=== PATIENT | female | born 1980 | race Caucasian/White ===

== ENCOUNTER 2021-06-03 12:51 | Emergency (ER) | payer MEDICAID, SELFPAY ==
[2021-06-03 13:01] VITALS: BP 184/98; PULSE 110; RESP 18; TEMP 36.6; O2SAT 98; BMI 35.0
--- NOTE | 2021-06-03 13:07 | ED_ITS ---
HPI - Abdominal Pain General: Chief Complaint: Abdominal Pain Stated Complaint: Stomach swelled up, hurting Time Seen by Provider: 06/03/21 13:07 History of Present Illness: Ms Jones is a 40-year-old lady with significant past medical history of alcohol and substance abuse who presents emergency department due to abdominal discomfort. She reports history of drinking about 1 gallon of hard alcohol per day for last 2 years as well as abusing multiple substances including fentanyl. She recently got insurance and has been with programs for substance abuse cessation, she is transition to methadone and last drink was 4 to 5 days ago. She started noticing, about 1 week ago, abdominal swelling and discomfort. She has noticed a fullness sensation which she has never had before. She reports symptoms are worse when trying to sit up and she has a lot of abdominal pressure associated with this. Intensity when present is moderate to severe. Course has been worsening. She feels generally unwell and has chills and fevers at times though reports she is unsure if this is related to the change from the substances she was using to methadone or something else. No other specific changes in health, exacerbating, or relieving factors identified. Pertinent past history: other Onset (ago): week(s) Pain Consistency: constant Location: Diffuse Severity: moderate Quality: fullness and other Exacerbating factors: movement Relieving factors: nothing Context: other Review of Systems General: Reports: 10 or more systems reviewed and unremarkable except in HPI and below PFSH ED PFSH: Medical History HTN (hypertension) Surgical History History of section History of tubal ligation Social History Smoking and tobacco status: current every day smoker Alcohol intake: current Physical Exam Const: COMMON NORMALS: alert GENERAL APPEARANCE: cooperative and well developed HENMT: COMMON NORMALS: normocephalic and atraumatic HEAD & SCALP: normocephalic and atraumatic Eye: COMMON NORMALS: conjunctivae normal CONJUNCTIVA: Yes conjunctivae normal SCLERA: sclerae normal Neck/C-Spine: COMMON NORMALS: supple GENERAL: Yes trachea midline Resp: COMMON NORMALS: normal respiratory effort EFFORT & INSPECTION: Yes able to speak in complete sentences AUSCULTATION: diminished lung sounds bilateral in the lower lung nj Cardio: COMMON NORMALS: regular rhythm RATE: tachycardic RHYTHM: regular rhythm GI: COMMON NORMALS: Soft to palpation PALPATION: Yes Soft to palpation, Yes Tenderness to palpation present (GI), No Guarding due to palpation present (GI) and No Rigid due to palpation PERCUSSION: normal to percussion Extremity: GENERAL: Yes normal exam except as noted and No edema Neuro: COMMON NORMALS: moves all extremities SENSORIUM/ORIENTATION: Yes alert and No Orientation impaired Psych: COMMON NORMALS: mental status grossly normal and Normal thought process present THOUGHT PROCESS: Normal thought process present Course ED course: - Patient was seen and evaluated by me at bedside - Patient placed on cardiac monitors, IV access obtained - Initial evaluation notable for exam as above -IV fluids given. Anxiolysis given. - Labs notable for no leukocytosis, metabolic panel with evidence of dehydration. There is transaminitis, lipase normal. Urinalysis not concerning for urinary tract infection. Given history hepatitis panel ordered however pending at time of discharge. - Imaging notable for no acute findings identified to explain the patient's abdominal discomfort. She does have cholelithiasis diffuse hepatic steatosis as well as asymmetric kidneys and a fat-containing ventral hernia. - Upon serial reexamination after treatment the patient was improved - Based on patient history, evaluation, labs, and imaging as interpreted the most likely cause of the patient's condition is likely multifactorial including transition to methadone, fatty liver, and other causes - The patient does endorse a intermittent history of what sounds like symptomatic cholelithiasis and therefore will be referred for outpatient surgical consultation. Additionally, given the patient's transaminitis I will refer her to Dr. Rodriguez. - The results of ED evaluation were discussed with the patient including prescriptions and/or symptomatic cares (if applicable) including appropriate and responsible use, followup plan, and return precautions. The patient verbalized understanding and felt safe for discharge. - Patient discharged in satisfactory condition. Note: Click bubbles or prepopulated nj in note writing are used for assistance with data collection and billing and are inherently more limited than narrative and other text portions of this note. Please use narrative for additional clinical history and defer to narrative/free test for any case of contradictory information. If information appears in only free text or click bubble it should be considered present or absent as reported. Please contact note telegraphic typewriter repairer for clarifications of clinical information or contradictory information. MDM is a brief summary, contradictory or erroneous seeming information should be clarified and full note should be reviewed. Vital Signs: Vital signs: Vital Signs Temperature 97.9 F 06/03/21 13:01 Pulse Rate 101 H 06/03/21 16:39 Respiratory Rate 17 06/03/21 16:39 Blood Pressure 166/104 06/03/21 16:39 Pulse Oximetry 98 06/03/21 16:39 MDM - Abdominal Pain Medical Decision Making 40-year-old lady with complex past medical history presents emergency department due to abdominal discomfort and generalized symptoms. Laboratory studies notable for mild transaminitis. CT imaging without acute pathology requiring intervention. Patient improved after symptomatic treatment and satisfactory for outpatient follow-up. Medical Records I reviewed the patient's medical records. Lab Data I reviewed the patient's lab results. : 06/03/21 14:09 06/03/21 14:09 Labs/Radiology: Radiology Impressions Abdomen/Pelvis CT 06/03/21 13:20 IMPRESSION: 1. No acute findings. 2. Cholelithiasis. 3. Fat containing ventral hernia. 4. Diffuse hepatic steatosis. 5. 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 COMMENTS: Consistent with the [employer]'s Incidental Findings Committee white paper (J Am Zeny Radiol 2018): Any incidental renal lesion less than 1 cm or classified as too small to characterize, or any incidental cystic renal lesion characterized as simple-appearing, is likely benign. No follow-up imaging is recommended for these lesions per consensus recommendations based on imaging criteria. Laboratory Results WBC 6.3 10^3/uL (4.0-10.0) 06/03/21 14:09 RBC 5.46 10^6/uL (4.1-5.3) H 06/03/21 14:09 Hgb 13.9 g/dL (11.5-15.3) 06/03/21 14:09 Hct 45.0 % (37.0-47.0) 06/03/21 14:09 MCV 82.4 fl (81-99) 06/03/21 14:09 MCH 25.5 pg (28.0-34.0) L 06/03/21 14:09 MCHC 30.9 g/dL (30.0-36.0) 06/03/21 14:09 RDW 15.9 % (12.1-15.1) H 06/03/21 14:09 Plt Count 227 10^3/cmm (130-400) 06/03/21 14:09 MPV 10.0 fL (7.4-10.4) 06/03/21 14:09 Neut % (Auto) 57.1 % 06/03/21 14:09 Lymph % (Auto) 33.5 % 06/03/21 14:09 [place] % (Auto) 7.9 % 06/03/21 14:09 Eos % (Auto) 0.6 % 06/03/21 14:09 Baso % (Auto) 0.6 % 06/03/21 14:09 Neut # (Auto) 3.60 10^3/uL (1.8-7.7) 06/03/21 14:09 Lymph # (Auto) 2.1 10^3/uL (0.8-4.8) 06/03/21 14:09 [place] # (Auto) 0.5 10^3/uL (0.2-0.9) 06/03/21 14:09 Eos # (Auto) 0.0 10^3/uL (0.0-0.8) 06/03/21 14:09 Baso # (Auto) 0.0 10^3/uL (0.0-0.1) 06/03/21 14:09 Nucleated RBC % (auto) 0 % 06/03/21 14:09 Nucleated RBCs # 0.0 /100WBC 06/03/21 14:09 Sodium 130 mmol/L (136-145) L 06/03/21 14:09 Potassium 4.3 mmol/L (3.5-5.1) 06/03/21 14:09 Chloride 92 mmol/L (98-107) L 06/03/21 14:09 Carbon Dioxide 23 mmol/L (22-29) 06/03/21 14:09 Anion Gap 19.3 (5-19) H 06/03/21 14:09 BUN 12 mg/dL (6-20) 06/03/21 14:09 Creatinine 0.6 mg/dL (0.5-0.9) 06/03/21 14:09 GFR Calculation 110.7 mL/min (90-130) 06/03/21 14:09 Glucose 101 mg/dL (65-115) 06/03/21 14:09 Calculated Osmolality 270 mOsm/kg (285-295) L 06/03/21 14:09 Calcium 8.8 mg/dL (8.5-10.5) 06/03/21 14:09 Total Bilirubin 0.9 mg/dL (0.15-1.2) 06/03/21 14:09 AST 95 U/L (0-32) H 06/03/21 14:09 ALT 66 U/L (0-33) H 06/03/21 14:09 Alkaline Phosphatase 174 IU/L (35-105) H 06/03/21 14:09 NT-Pro-B Natriuret Pep 135 pg/mL (0-125) H 06/03/21 14:09 Total Protein 8.3 g/dL (6.6-8.7) 06/03/21 14:09 Albumin 4.6 g/dL (3.5-5.2) 06/03/21 14:09 Globulin 3.7 g/dL (1.3-4.6) 06/03/21 14:09 Lipase 44 U/L (13-60) 06/03/21 14:09 HCG, Qual Negative (Negative) 06/03/21 13:49 Urine Color Yellow (Yellow) 06/03/21 13:49 Urine Appearance Clear (CLEAR) 06/03/21 13:49 Urine pH 5 (5-7) 06/03/21 13:49 Ur Specific [place] 1.025 (1.005-1.030) 06/03/21 13:49 Urine Protein 1+ (Negative) H 06/03/21 13:49 Urine Glucose (UA) Norm (Normal) 06/03/21 13:49 Urine Ketones Negative (Negative) 06/03/21 13:49 Urine Blood Neg (Negative) 06/03/21 13:49 Urine Nitrate Negative (Negative) 06/03/21 13:49 Urine Bilirubin Neg (Negative) 06/03/21 13:49 Urine Urobilinogen Norm mg/dL (Negative) 06/03/21 13:49 Ur Leukocyte Esterase Negative (Negative) 06/03/21 13:49 Urine RBC 0-4 /hpf (0-2) H 06/03/21 13:49 Urine WBC 0-4 /hpf (0-5) H 06/03/21 13:49 Ur Squamous Epith Cells 5-10 /hpf (0-5) H 06/03/21 13:49 Amorphous Sediment Not Reportable 06/03/21 13:49 Urine Bacteria Trace /hpf (NONE) 06/03/21 13:49 Urine Mucus 1+ /hpf 06/03/21 13:49 Hepatitis A IgM Ab Non-reactive (Nonreactive) 06/03/21 16:56 Hep Bs Antigen Non-reactive (Nonreactive) 06/03/21 16:56 Hep B Core IgM Ab Non-reactive (Nonreactive) 06/03/21 16:56 Hepatitis C Antibody Reactive (Nonreactive) H 06/03/21 16:56 HCV RNA Qnt PCR Amp&Det Cancelled 06/03/21 18:21 HCV RNA (PCR) IUs/ml Cancelled 06/03/21 18:21 HCV RNA (PCR) IU log10 Cancelled 06/03/21 18:21 Discharge Plan Discharge Patient Disposition: Home Clinical Impression: Abdominal pain, Transaminitis, Alcoholic liver disease Condition: Stable Prescriptions: No Action methadone 10 mg Tablet 70 mg PO DAILY 0RF Discharge Orders: Discharge ED (Routine); Ordered 06/03/21 Ordered By: Kong Smiley Discharge Diet: Usual diet Discharge Activity: Resume usual activity Patient Instructions: Gallstones (ED), Abdominal Pain (ED), Opioid Safety Activity Restrictions/Additional Instructions: Thank you for visiting the emergency department. You were seen and evaluated for abdominal pain and fullness. The exact cause of your symptoms is unclear though likely related to alcoholic liver disease. You were noted to have dehydration which is likely contributing though also associated with your liver disease. You have mild elevation in your liver enzymes. As discussed you do have gallstones though I do not see evidence of infection of your gallbladder or need for hospitalization/surgery at this time. Please follow-up with gastroenterology and general surgery. Please establish with a primary care provider. Please follow-up with your substance abuse providers. Please return to the emergency department for uncontrolled symptoms or anything else that you are concerned about and feel needs emergency department evaluation. Coding Level of Care Code ED Casting Wheel Operator for [place] Fwd Exam Comprehensive
--- NOTE | 2021-06-03 13:20 | CTR_ITS ---
PROCEDURE INFORMATION: Exam: CT Abdomen And Pelvis With Contrast Exam date and time: 06/03/2021 1:20 PM Age: 40 years old Clinical indication: Prior surgery; Surgery date: 6+ months; Surgery type: C-sect, tubal; Patient HX: C/O gen abd discomfort and bloating; Additional info: Abd pain, fullness TECHNIQUE: Imaging protocol: Computed tomography of the abdomen and pelvis with contrast. Radiation optimization: All CT scans at this facility use at least one of these dose optimization techniques: automated exposure control; mA and/or kV adjustment per patient size (includes targeted exams where dose is matched to clinical indication); or iterative reconstruction. Contrast material: OMNI 300; Contrast volume: 90 ml; Contrast route: INTRAVENOUS (IV); COMPARISON: No relevant prior studies available. RADIATION DOSE METRICS: Total DLP (mGy-cm): 1804.42 FINDINGS: Liver: Diffuse hepatic steatosis. No mass. Gallbladder and bile ducts: Cholelithiasis without gallbladder wall thickening or distention. No ductal dilation. Pancreas: Pancreas appears atrophic. No ductal dilation. Spleen: Normal. No splenomegaly. Adrenal glands: Normal. No mass. Kidneys and ureters: 4.5 cm cyst in the left kidney with a single thin septation (Bosniak II) no further follow-up is needed. Moderate asymmetric atrophy of the left kidney. No hydronephrosis. Stomach and bowel: Unremarkable. No obstruction. No mucosal thickening. Appendix: No evidence of appendicitis. Intraperitoneal space: Unremarkable. No free air. No significant fluid collection. Vasculature: Unremarkable. No abdominal aortic aneurysm. Lymph nodes: Unremarkable. No enlarged lymph nodes. Urinary bladder: Unremarkable as visualized. Reproductive: Unremarkable as visualized. Bones/joints: No acute fracture. Soft tissues: Fat containing ventral hernia with the hernia sac measuring 5.[address]/CT abdomen pelvis w con* [id number] IMPRESSION: 1. No acute findings. 2. Cholelithiasis. 3. Fat containing ventral hernia. 4. Diffuse hepatic steatosis. 5. 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 COMMENTS: Consistent with the [employer]'s Incidental Findings Committee white paper (J Am Zeny Radiol 2018): Any incidental renal lesion less than 1 cm or classified as too small to characterize, or any incidental cystic renal lesion characterized as simple-appearing, is likely benign. No follow-up imaging is recommended for these lesions per consensus recommendations based on imaging criteria.
[2021-06-03 14:18] LABS: Basophils % 0.6 %; Eosinophils % 0.6 %; Hemoglobin 13.9 g/dL (11.5-15.3); Lymphocytes # 2.1 10^3/uL (0.8-4.8); Lymphocytes % 33.5 %; Mean Corpuscular HGB Conc 30.9 g/dL (30.0-36.0); Mean Corpuscular Hemoglobin 25.5 pg (28.0-34.0); Mean Corpuscular Volume 82.4 fl (81-99); Monocytes # 0.5 10^3/uL (0.2-0.9); Monocytes % 7.9 %; Neutrophils % 57.1 %; Nucleated Red Blood Cells % 0 %; Platelet Count 227 10^3/cmm (130-400); Red Blood Count 5.46 10^6/uL (4.1-5.3); Red Cell Distribution Width 15.9 % (12.1-15.1); White Blood Count 6.3 10^3/uL (4.0-10.0)
[2021-06-03 14:20] LABS: Add Urine Microscopic? YES; Bilirubin Urine Neg (Negative); Blood Urine Neg (Negative); Glucose Urine UA Norm (Normal); HCG Qualitative Urine. Negative (Negative); Ketones Urine Negative (Negative); Leukocyte Esterase Urine Negative (Negative); Nitrate Urine Negative (Negative); Protein Urine 1+ (Negative); Specific Gravity, Urine 1.025 (1.005-1.030); Urine Appearance Clear (CLEAR); Urine Color Yellow (Yellow); Urobilinogen Urine Norm (Negative); pH Urine 5 (5-7)
[2021-06-03 14:30] LABS: Add Urine Culture? No; Bacteria Urine TRACE /hpf; Mucus Urine 1+ /hpf; RBC Urine 0-4 /hpf (0-2); WBC Urine 0-4 /hpf (0-5)
[2021-06-03] MEDS: iohexol 300 mg/mL 100 mL Btl IV (14:38)
[2021-06-03 14:50] LABS: Alanine Aminotransferase 66 U/L (0-33); Albumin Level 4.6 g/dL (3.5-5.2); Alkaline Phosphatase 174 IU/L (35-105); Blood Urea Nitrogen 12 mg/dL (6-20); Calcium 8.8 mg/dL (8.5-10.5); Carbon Dioxide 23 mmol/L (22-29); Chloride 92 mmol/L (98-107); Globulin 3.7 g/dL (1.3-4.6); Glomerular Filtration Rate 110.7 mL/min (90-130); Glucose 101 mg/dL (65-115); Lipase 44 U/L (13-60); NT Pro B Type Natriuretic Pept 135 pg/mL (0-125); Osmolality Calculated 270 mOsm/kg (285-295); Sodium 130 mmol/L (136-145); Total Bilirubin 0.9 mg/dL (0.15-1.2); Total Protein 8.3 g/dL (6.6-8.7)
[2021-06-03] MEDS: sodium chloride 0.9% 1,000 ML 999 ML IV (14:51)
[2021-06-03 14:54] LABS: Anion Gap 19.3 (5-19); Aspartate Amino Transferase 95 U/L (0-32)
[2021-06-03 14:55] LABS: Potassium 4.3 mmol/L (3.5-5.1)
[2021-06-03] MEDS: LORazepam 2 mg/mL INJ 1 mL 0.5 MG IVP (16:03)
[2021-06-03] MEDS: nicotine 14 mg Patch 1 PATCH TRANSDERMA (16:04)
[2021-06-03 16:39] VITALS: BP 166/104; PULSE 101; RESP 17; O2SAT 98
[2021-06-03 17:37] LABS: Hepatitis A Antibody IgM Non-Reactive (Nonreactive); Hepatitis B Core IgM Non-Reactive (Nonreactive); Hepatitis B Surface Antigen Non-Reactive (Nonreactive)
[2021-06-03 18:20] LABS: Hepatitis C Virus Antibody Reactive (Nonreactive)
--- NOTE | 2021-06-06 08:42 | DCPLANNER ---
Addendum entered by Radha Damon 06/21/21 14:30: Patient had a follow up appointment scheduled for 06.15.[address] Rodriguez - patient did attend appointment. Original Note: client manager large law had message to schedule a follow up appointment for patient with Dr. Rodriguez. client manager large law called the office of Dr. Rodriguez, spoke with Ni, gave clinic patients information. A follow up appointment was scheduled for May at 10:[address] Rodriguez. Clinic will call patient with appointment information.
== END 2021-06-03 19:11 | disposition home or self-care (01) ==
PROVIDERS: Emergency Provider Emergency Medicine
DX: K70.9 Alcoholic liver disease, unspecified (principal); R74.01 Elevation of levels of liver transaminase levels; I10 Essential (primary) hypertension; F17.210 Nicotine dependence, cigarettes, uncomplicated
CPT/HCPCS: 74177; 80053; 80074; 81001; 81025; 83690; 83880; 85025; 87040; 87522; 96361; 96374; 99284; J2060; J7030; Q9967